=== PATIENT | male | born 1995 | race Hispanic/Latino ===

== ENCOUNTER 2022-02-15 15:05 | Emergency (ER) | payer SELFPAY ==
[2022-02-15] MEDS ORDERED: Ondansetron PF 4 MG/2 ML Vial ONE (15:17)
[2022-02-15 15:43] LABS: #Eosinphils 0.1 thou/uL (0.0-0.7); #Lymphocytes 1.9 thou/uL (1.20-3.40); #Monocytes 0.5 thou/uL (0.11-0.59); #Neutrophils 8.5 thou/uL (1.40-6.50); %Basophils 0.3 % (0.0-1.0); %Eosinophils 0.9 % (0.0-10.0); %Lymphocytes 17.2 % (21.0-51.0); %Monocytes 4.8 % (0.0-10.0); %Neutrophils 76.9 % (42.0-75.0); Hemoglobin 16.2 g/dL (14.0-18.0); Mean Corpuscular HGB CONC 33.5 g/dL (32.0-36.0); Mean Corpuscular Hemoglobin 31.5 pg (27.0-31.0); Mean Platelet Volume 7.2 fL (7.4-10.4); Platelet Count 309 thou/uL (130-400); RBC Distribution Width 12.2 % (11.5-14.5); Red Blood Cell (RBC) Count 5.14 mill/uL (4.70-6.10)
[2022-02-15 16:19] LABS: ALT (SGPT) 40 U/L (8-55); AST (SGOT) 36 U/L (5-34); Albumin 4.3 g/dL (3.5-5.0); Alkaline Phosphatase 81 U/L (40-110); Anion Gap 16 mmol/L (10-20); BUN (Urea Nitrogen) 9 mg/dL (8.9-20.6); Bilirubin, Total 0.8 mg/dL (0.2-1.2); CK (CPK) 487 U/L (30-200); Calc. Creatinine Clearance 0 mL/min (70-130); Calcium 9.4 mg/dL (7.8-10.44); Carbon Dioxide 19 mmol/L (22-29); Chloride 107 mmol/L (98-107); Estimated GFR 96; Globulin 3.1 g/dL (2.4-3.5); Glucose 132 mg/dL (70-105); Potassium 3.6 mmol/L (3.5-5.1); Protein, Total 7.4 g/dL (6.0-8.3); Sodium 138 mmol/L (136-145)
== END 2022-02-15 16:55 | disposition home or self-care (01) ==
LOC: ERS 15:05
DX: R56.9 Unspecified convulsions (principal); E86.0 Dehydration
CPT/HCPCS: 36415; 70450; 80053; 82550; 84146; 85025; 93005; 96374; J2405

== ENCOUNTER 2022-06-19 09:32 | Emergency (ER) | payer SELFPAY ==
[2022-06-19] MEDS ORDERED: Ketorolac Tromethamine 30 MG/ML VIAL ONE (11:34)
== END 2022-06-19 14:11 | disposition home or self-care (01) ==
LOC: ERS 09:32
DX: R22.42 Localized swelling, mass and lump, left lower limb (principal)
CPT/HCPCS: 76999; 96372; 99283; J1885

== ENCOUNTER 2024-03-03 06:34 | Emergency (ER) | payer SELFPAY ==
[2024-03-03] MEDS ORDERED: Ibuprofen 800 MG TAB ONE (07:15)
== END 2024-03-03 07:45 | disposition home or self-care (01) ==
LOC: ERS 06:34
DX: S63.502A Unspecified sprain of left wrist, initial encounter (principal); W51.XXXA Accidental striking against or bumped into by another person, initial encounter; Y93.67 Activity, basketball
CPT/HCPCS: 99283

== ENCOUNTER 2025-04-13 13:03 | Emergency (ER) | payer SELFPAY ==
[2025-04-13] MEDS ORDERED: Ketorolac Tromethamine 30 MG (1 mL) VIAL ONE (15:33)
[2025-04-13] MEDS ORDERED: Lidocaine Viscous Sol 2% 15 ml UD Cup ONE (15:39)
== END 2025-04-13 15:37 | disposition home or self-care (01) ==
LOC: ERS 13:03
DX: B34.9 Viral infection, unspecified (principal); K12.1 Other forms of stomatitis
CPT/HCPCS: 87081; 87430; 96372; 99283; J1885